=== PATIENT | female | born 1980 | race Caucasian/White ===

== ENCOUNTER 2016-09-03 04:02 | Inpatient (IN) | payer OTHER ==
[2016-09-03] MEDS ORDERED: Sodium Chloride 0.9% 10 ML Syringe FLUSH PRN (06:23)
[2016-09-03] MEDS ORDERED: Butorphanol 1 MG/ML SDV IVPUSH PRN (06:23)
[2016-09-03] MEDS ORDERED: Nalbuphine 10 MG/1 ML Vial IVPUSH PRN (06:23)
[2016-09-03] MEDS ORDERED: Methylergonovine 0.2 MG/1 ML Amp IM PRN (06:23)
[2016-09-03] MEDS ORDERED: Water For Irrigation,Sterile 1,000 ML Container IRR PRN (06:23)
[2016-09-03] MEDS ORDERED: Sodium Chloride 0.9% 2.5 ML Syringe FLUSH PRN (06:23)
[2016-09-03] MEDS ORDERED: Carboprost Tromethamine 250 MCG/1 ML Amp IM PRN (06:23)
[2016-09-03] MEDS ORDERED: Lidocaine 1% 50 ML MDV INJECT PRN (06:23)
[2016-09-03] MEDS ORDERED: Misoprostol 200 MCG Tab PO PRN (06:23)
[2016-09-03] MEDS ORDERED: Oxytocin/Lactated Ringers 30 UNIT/500 ML BAG IV SCH (06:30)
[2016-09-03] MEDS ORDERED: Ampicillin 2 GM in Sodium Chloride 0.9% 100 ML IV ONE ×2 (06:30→07:30)
[2016-09-03] MEDS: Lactated Ringers 1,000 ML IV SCH ×2 (06:55→12:00)
[2016-09-03] MEDS ORDERED: Ampicillin 1 GM in Sodium Chloride 0.9% 50 ML IV SCH (07:30)
--- NOTE | 2016-09-03 11:54 | PCM.LDHP ---
L&D History of Present Illness - General Date of Service: 09/03/16 Admit Problem/Dx: Patient Status Order with Admit Dx/Problem 09/03/16 06:24 Patient Status [ADT] Routine Admission Diagnosis/Problem Admission Diagnosis/Problem Source of Information: Patient History Limitations: Reports: No Limitations - History of Present Illness Improves with: Reports: None Worsens with: Reports: None Associated Symptoms: Reports: N - Related Data Allergies/Adverse Reactions: Allergies Allergy/AdvReac Type Severity Reaction Status Date / Time shellfish derived Allergy Anaphylactic Verified 03/29/16 22:26 Shock Home Medications: Home Meds . [No Known Home Meds] 05/28/14 [History] Past Medical History - Past Health History Medical/Surgical History: Denies Medical/Surgical History HEENT History: Reports: None Cardiovascular History: Reports: None Respiratory History: Reports: Asthma Gastrointestinal History: Reports: None Genitourinary History: Reports: None Other OB/BYN History: Gestational DM. Pre-Eclampsia. bleeding Neurological History: Reports: None Psychiatric History: Reports: None Endocrine/Metabolic History: Reports: Diabetes, Gestational Hematologic History: Reports: None Immunologic History: Reports: None Oncologic (Cancer) History: Reports: None Dermatologic History: Reports: None - Infectious Disease History Infectious Disease History: Reports: None - Past Surgical History GI Surgical History: Reports: Cholecystectomy Other GI Surgeries/Procedures: spleenectomy. cholecystectomy May 2014 Social & Family History - Family History Family Medical History: Noncontributory Cardiac: Reports: Hypertension Endocrine/Metabolic: Reports: Diabetes, type II Oncologic: Reports: Prostate - Tobacco Use Smoking Status *Q: Never Smoker Second Hand Smoke Exposure: No - Caffeine Use Caffeine Use: Reports: None - Alcohol Use Days Per Week of Alcohol Use: 0 - Recreational Drug Use Recreational Drug Use: No H&P Review of Systems - Review of Systems: Review Of Systems: See Below General: Reports: No Symptoms HEENT: Reports: No Symptoms Pulmonary: Reports: No Symptoms Cardiovascular: Reports: No Symptoms Gastrointestinal: Reports: No Symptoms Genitourinary: Reports: No Symptoms Musculoskeletal: Reports: No Symptoms Skin: Reports: No Symptoms Psychiatric: Reports: No Symptoms Neurological: Reports: No Symptoms Hematologic/Lymphatic: Reports: No Symptoms Immunologic: Reports: No Symptoms L&D Exam - Exam Exam: See Below - Vital Signs Weight: 115.6 kg - OB Specific Fundal Height In cm: 39 Contraction Intensity: Mild to Moderate Movement: Active Heart Tones: Present Presentation: Vertex - Stanton Score Stanton Score Consistency: Medium Stanton Score Effacement: 31-50% Stanton Score Dilation: 3-4 cm Stanton Score 's Station: -2 - Exam General: Alert, Oriented HEENT: PERRLA, Conjunctiva Clear, EACs Clear, EOMI, Hearing Intact, Mucosa Moist & Crane, Nares Patent, Normal Nasal Septum, Posterior Pharynx Clear, TMs Clear Neck: Supple, Trachea Midline Lungs: Clear to Auscultation, Normal Respiratory Effort Cardiovascular: Regular Rate, Regular Rhythm GI/Abdominal Exam: Normal Bowel Sounds, Soft, Non-Tender, No Organomegaly, No Distention, No Abnormal Bruit, No Mass, Pelvis Stable Rectal Exam: Normal Exam, Normal Rectal Tone Genitourinary: Normal external exam, Normal bimanual exam, Normal speculum exam Back Exam: Normal Inspection, Full Range of Motion Extremities: Normal Inspection, Normal Range of Motion, Non-Tender, No Pedal Edema, Normal Capillary Refill Skin: Warm, Dry, Intact Neurological: Cranial Nerves Intact, Reflexes Equal Bilateral Psychiatric: Alert, Normal Affect, Normal Mood - Patient Data Lab Results Last 24 hrs: Laboratory Results - last 24 hr 09/03/16 09/03/16 Range/Units 06:43 06:43 WBC 11.83 H (4.0-11.0) K/uL RBC 3.69 L (4.30-5.90) M/uL Hgb 7.2 L (12.0-16.0) g/dL Hct 25.2 L (36.0-46.0) % MCV 68.3 L (80.0-98.0) fL MCH 19.5 L (27.0-32.0) pg MCHC 28.6 L (31.0-37.0) g/dL RDW Std Deviation 45.1 (28.0-62.0) fl RDW Coeff of Damon 18 H (11.0-15.0) % Plt Count 348 (150-400) K/uL MPV 10.20 (7.40-12.00) fL Nucleated RBC % 0.0 /100WBC Nucleated RBCs # 0 K/uL Blood Type O POSITIVE Antibody Screen NEGATIVE Crossmatch See Detail Result Diagrams: 09/03/16 06:43 Problem List Initiated/Reviewed/Updated: Yes Orders Last 24hrs: Active Orders 24 hr Category Date Time Status Patient Status [ADT] Routine ADT 09/03/16 06:24 Active May Shower [RC] ASDIRECTED Care 09/03/16 06:24 Active Notify Provider [RC] PRN Care 09/03/16 06:24 Active Up ad Janette [RC] ASDIRECTED Care 09/03/16 06:24 Active Vital Signs [RC] PER UNIT ROUTINE Care 09/03/16 06:24 Active Clear Liquid Diet [DIET] Diet 09/03/16 Breakfast Active RED BLOOD CELLS LP [BBK] Routine Lab 09/03/16 06:43 Results TYPE AND SCREEN [BBK] Routine Lab 09/03/16 06:43 Results Ampicillin 1 gm Med 09/03/16 11:30 Active Sodium Chloride 0.9% [Normal Saline] 50 ml IV Q4H Butorphanol [Stadol] Med 09/03/16 06:23 Active 1 mg IVPUSH Q1H PRN Carboprost Tromethamine [Hemabate DS] Med 09/03/16 06:23 Active 250 mcg IM ASDIRECTED PRN Lactated Ringers [Ringers, Lactated] 1,000 ml Med 09/03/16 06:30 Active IV ASDIRECTED Lidocaine 1% [Xylocaine 1%] Med 09/03/16 06:23 Active 50 ml INJECT .ONCE PRN Methylergonovine [Methergine] Med 09/03/16 06:23 Active 0.2 mg IM ASDIRECTED PRN Misoprostol [Cytotec] Med 09/03/16 06:23 Active 200 mcg PO .ONCE PRN Sodium Chloride 0.9% [Saline Flush] Med 09/03/16 06:23 Active 10 ml FLUSH ASDIRECTED PRN Sodium Chloride 0.9% [Saline Flush] Med 09/03/16 06:23 Active 2.5 ml FLUSH ASDIRECTED PRN Water For Irrigation,Sterile [Sterile Water for Med 09/03/16 06:23 Active Irrigation] 1,000 ml IRR ASDIRECTED PRN Scalp Electrode [WOMSER] Per Unit Routine Oth 09/03/16 06:24 Ordered Peripheral IV Insertion Adult [OM.PC] Routine Oth 09/03/16 06:24 Ordered Transfuse Red Blood Cells [COMM] Routine Oth 09/03/16 07:52 Ordered Resuscitation Status Routine Resus Stat 09/03/16 06:23 Ordered Medication Orders Butorphanol Tartrate (Stadol) 1 mg IVPUSH Q1H PRN PRN Reason: Pain Stop: 09/04/16 06:24 Carboprost Tromethamine (Hemabate Ds) 250 mcg IM ASDIRECTED PRN PRN Reason: Post Hemorrhage Lactated Ringer's (Ringers, Lactated) 1,000 mls @ 150 mls/hr IV ASDIRECTED EVELIN Last Admin: 09/03/16 06:55 Dose: 150 mls/hr Ampicillin Sodium 1 gm/ Sodium (Chloride) 50 mls @ 100 mls/hr IV Q4H EVELIN Lidocaine HCl (Xylocaine 1%) 50 ml INJECT .ONCE PRN PRN Reason: Laceration repair Methylergonovine Maleate (Methergine) 0.2 mg IM ASDIRECTED PRN PRN Reason: Post Hemorrhage Misoprostol (Cytotec) 200 mcg PO .ONCE PRN PRN Reason: Post Hemorrhage Sodium Chloride (Saline Flush) 10 ml FLUSH ASDIRECTED PRN PRN Reason: Keep Vein Open Sodium Chloride (Saline Flush) 2.5 ml FLUSH ASDIRECTED PRN PRN Reason: Keep Vein Open Sterile Water (Sterile Water For Irrigation) 1,000 ml IRR ASDIRECTED PRN PRN Reason: delivery Assessment/Plan Comment:: IUP 38 + wks have no care shwe seen in our clinic in once. EDC 09/13/16. GBS status is unknown. she is in early labor. Plan to admit start on antibiotic she may need pitocin argumentation
[2016-09-03] MEDS: Ampicillin 1 GM in Sodium Chloride 0.9% 50 ML IV SCH ×4 (11:55→23:37)
[2016-09-03] MEDS ORDERED: Misoprostol 25 MCG (1/4 of 100 MCG) Tab VAG PRN (12:01)
[2016-09-03] MEDS ORDERED: Terbutaline 1 MG/ML SDV SUBCUT PRN (12:01)
[2016-09-03] MEDS ORDERED: Misoprostol 25 MCG (1/4 of 100 MCG) Tab VAG SCH (12:15)
[2016-09-03] MEDS: Oxytocin/Lactated Ringers 30 UNIT/500 ML BAG IV SCH (13:20)
[2016-09-03] MEDS ORDERED: Ropivacaine 0.2% 2 MG/ML 20 ML SDV ONE (22:28)
--- NOTE | 2016-09-03 22:58 | PCM.PREANE ---
Preanesthetic Assessment - Anesthesia/Transfusion/Family Hx Anesthesia History: Prior Anesthesia Without Reaction Family History of Anesthesia Reaction: No - Review of Systems Other: Reports: None - Physical Assessment Height: 5 ft 4 in Weight: 115.6 kg ASA Class: 2 Mental Status: Alert & Oriented x3 Airway Class: Mallampati = 2 Thyro-Mental Finger Breadths: 3 Mouth Opening Finger Breadths: 3 ROM/Head Extension: Full - Lab Values: Laboratory Last Values WBC 11.83 K/uL (4.0-11.0) H 09/03/16 06:43 RBC 3.69 M/uL (4.30-5.90) L 09/03/16 06:43 Hgb 7.2 g/dL (12.0-16.0) L 09/03/16 06:43 Hct 25.2 % (36.0-46.0) L 09/03/16 06:43 MCV 68.3 fL (80.0-98.0) L 09/03/16 06:43 MCH 19.5 pg (27.0-32.0) L 09/03/16 06:43 MCHC 28.6 g/dL (31.0-37.0) L 09/03/16 06:43 RDW Std Deviation 45.1 fl (28.0-62.0) 09/03/16 06:43 RDW Coeff of Damon 18 % (11.0-15.0) H 09/03/16 06:43 Plt Count 348 K/uL (150-400) 09/03/16 06:43 MPV 10.20 fL (7.40-12.00) 09/03/16 06:43 Nucleated RBC % 0.0 /100WBC 09/03/16 06:43 Nucleated RBCs # 0 K/uL 09/03/16 06:43 Blood Type O POSITIVE 09/03/16 06:43 Antibody Screen NEGATIVE 09/03/16 06:43 Crossmatch See Detail 09/03/16 06:43 - Allergies Allergies/Adverse Reactions: Allergies Allergy/AdvReac Type Severity Reaction Status Date / Time shellfish derived Allergy Anaphylactic Verified 03/29/16 22:26 Shock - Blood Blood Available: Yes Product(s) Available: PRBC - Acknowledgements Anesthesia Type Planned: Epidural Pt an Appropriate Candidate for the Planned Anesthesia: Yes Alternatives and Risks of Anesthesia Discussed w Pt/Guardian: Yes Pt/Guardian Understands and Agrees with Anesthesia Plan: Yes PreAnesthesia Questionnaire - Past Health History Medical/Surgical History: Denies Medical/Surgical History HEENT History: Reports: None Cardiovascular History: Reports: None Respiratory History: Reports: Asthma Gastrointestinal History: Reports: None Genitourinary History: Reports: None Other OB/BYN History: Gestational DM. Pre-Eclampsia. bleeding Neurological History: Reports: None Psychiatric History: Reports: None Endocrine/Metabolic History: Reports: Diabetes, Gestational Hematologic History: Reports: None Immunologic History: Reports: None Oncologic (Cancer) History: Reports: None Dermatologic History: Reports: None - Infectious Disease History Infectious Disease History: Reports: None - Past Surgical History GI Surgical History: Reports: Cholecystectomy Other GI Surgeries/Procedures: spleenectomy. cholecystectomy May 2014 - SUBSTANCE USE Smoking Status *Q: Never Smoker Tobacco Use Within Last Twelve Months: No Second Hand Smoke Exposure: No Days Per Week of Alcohol Use: 0 Recreational Drug Use History: No - HOME MEDS Home Medications: Home Meds . [No Known Home Meds] 05/28/14 [History] - CURRENT (IN HOUSE) MEDS Current Meds: Current Medications Butorphanol Tartrate (Stadol) 1 mg IVPUSH Q1H PRN PRN Reason: Pain Stop: 09/04/16 06:24 Carboprost Tromethamine (Hemabate Ds) 250 mcg IM ASDIRECTED PRN PRN Reason: Post Hemorrhage Lactated Ringer's (Ringers, Lactated) 1,000 mls @ 150 mls/hr IV ASDIRECTED EVELIN Last Admin: 09/03/16 12:00 Dose: 150 mls/hr Ampicillin Sodium 1 gm/ Sodium (Chloride) 50 mls @ 100 mls/hr IV Q4H EVELIN Last Admin: 09/03/16 19:43 Dose: 100 mls/hr Oxytocin/Lactated Ringer's (Pitocin In Lr 30 Units/500 Ml) 30 unit in 500 mls @ 2 mls/hr IV TITRATE EVELIN; 2 MUNITS/MIN PRN Reason: Protocol Last Titration: 09/03/16 17:32 Dose: 20 munits/min, 20 mls/hr Lidocaine HCl (Xylocaine 1%) 50 ml INJECT .ONCE PRN PRN Reason: Laceration repair Methylergonovine Maleate (Methergine) 0.2 mg IM ASDIRECTED PRN PRN Reason: Post Hemorrhage Misoprostol (Cytotec) 200 mcg PO .ONCE PRN PRN Reason: Post Hemorrhage Sodium Chloride (Saline Flush) 10 ml FLUSH ASDIRECTED PRN PRN Reason: Keep Vein Open Sodium Chloride (Saline Flush) 2.5 ml FLUSH ASDIRECTED PRN PRN Reason: Keep Vein Open Sterile Water (Sterile Water For Irrigation) 1,000 ml IRR ASDIRECTED PRN PRN Reason: delivery Terbutaline Sulfate (Brethine) 0.25 mg SUBCUT ASDIRECTED PRN PRN Reason: Tacysystole Discontinued Medications Ampicillin Sodium 2 gm/ Sodium (Chloride) 100 mls @ 200 mls/hr IV ONETIME ONE Stop: 09/03/16 06:59 Last Admin: 09/03/16 07:42 Dose: 200 mls/hr Oxytocin/Lactated Ringer's (Pitocin In Lr 30 Units/500 Ml) 30 unit in 500 mls @ 999 mls/hr IV TITRATE EVELIN; 999 MUNITS/MIN PRN Reason: Protocol Stop: 09/03/16 07:01 Ampicillin Sodium 2 gm/ Sodium (Chloride) 100 mls @ 200 mls/hr IV ONETIME ONE Stop: 09/03/16 07:59 Ampicillin Sodium 1 gm/ Sodium (Chloride) 50 mls @ 100 mls/hr IV Q4H EVELIN Ropivacaine/Fentanyl/NS (Fentanyl 2 Mcg-Ropiv 0.2%-Ns) Confirm Administered Dose 100 mls @ as directed .ROUTE .STK-MED ONE Stop: 09/03/16 22:28 Nalbuphine HCl (Nubain) 10 mg IVPUSH Q1H PRN PRN Reason: Pain (severe 7-10) Stop: 09/03/16 08:24 Ropivacaine (Naropin 0.2%) Confirm Administered Dose 20 ml .ROUTE .STK-MED ONE Stop: 09/03/16 22:29
[2016-09-04] MEDS ORDERED: Ibuprofen 800 MG Tab PO PRN (01:16)
[2016-09-04] MEDS ORDERED: Ibuprofen 400 MG Tab PO PRN (01:16)
[2016-09-04] MEDS ORDERED: Acetaminophen 500 MG Tab PO PRN ×2 (01:16)
[2016-09-04] MEDS ORDERED: Benzocaine/Menthol 20%-0.5% Spray 78 GM Cannister TOP PRN (01:16)
[2016-09-04] MEDS ORDERED: Docusate Sodium 100 MG Cap PO PRN (01:16)
[2016-09-04] MEDS ORDERED: oxyCODONE 5 MG Tab PO PRN (01:16)
[2016-09-04] MEDS ORDERED: Bisacodyl 10 MG Supp RECTAL PRN (01:16)
[2016-09-04] MEDS ORDERED: Lanolin 100% Cream 7 GM Tube TOP PRN (01:16)
[2016-09-04] MEDS ORDERED: Witch Hazel Medicated Pads 40/Jar TOP PRN (01:16)
[2016-09-04] MEDS: Oxytocin/Lactated Ringers 30 UNIT/500 ML BAG IV SCH (01:31)
[2016-09-04] MEDS ORDERED: Oxytocin/Lactated Ringers 30 UNIT/500 ML BAG IV SCH (01:45)
--- NOTE | 2016-09-04 01:47 | OR ---
SURGEON: Luigi Garcia MD DATE OF PROCEDURE: Ms. Dillard is 35 years old. She is para 12-0-1-12. She has very limited care in this delivery. In this , she was seen in the clinic once by our harness repairer and she was told at that time her EDC is on September 15, 2016. The patient presented to Labor and Delivery in early labor. At the time of admission, she was 5 cm dilated, 60% vertex, minus 3. The patient progressed to 6 cm and then artificial rupture of the membrane is done by me. She required Pitocin augmentation for labor. She had epidural anesthesia for labor analgesia. The patient progressed rather slowly. Her amniotic fluid was clear and eventually the patient became complete-complete and I was able to accomplish normal spontaneous vaginal delivery of a male fetus, cried immediately. score is reported as 8 and 9 at 1 and 5. Two nuchal cords were noted, reduced easily without any problem. There was no need for episiotomy. There is no laceration, the perineal or labial laceration. The placenta delivered spontaneous, complete, and intact without any problem. ESTIMATED BLOOD LOSS: 250 to 300 mL. Through the entire process of labor, the heart rate was category 1. There was no complication in the labor and in the . RAMIREZ / DANIA /[id number]
--- NOTE | 2016-09-04 09:19 | PCM48HPAN ---
Post Anesthesia Note - EVALUATION WITHIN 48HRS OF ANESTHETIC Vital Signs in Normal Range: Yes Patient Participated in Evaluation: Yes Respiratory Function Stable: Yes Airway Patent: Yes Cardiovascular Function Stable: Yes Hydration Status Stable: Yes Pain Control Satisfactory: Yes Nausea and Vomiting Control Satisfactory: Yes Mental Status Recovered: Yes
--- NOTE | 2016-09-05 08:30 | PCM.DCSUM1 ---
Discharge Summary - Hospital Course Free Text/Narrative:: Discharge home with infant. Follow up 6 weeks or sooner if needed. - Discharge Data Discharge Date: 09/05/16 Discharge Disposition: Home, Self-Care 01 Condition: Good - Discharge Diagnosis/Problem(s) (1) Grand multipara SNOMED Code(s): 26240251 ICD Code: Z64.1 - PROBLEMS RELATED TO MULTIPARITY Status: Acute Priority : High Current Visit: Yes (2) (normal spontaneous vaginal delivery) SNOMED Code(s): 10545851 ICD Code: O80 - ENCOUNTER FOR FULL-TERM UNCOMPLICATED DELIVERY Status: Acute Priority: Medium Current Visit: Yes - Patient Instructions Diet: Usual Diet as Tolerated Activity: As Tolerated, Rest and Relax Today Driving: May Drive Today Showering/Bathing: May Shower Notify Provider of: Fever, Increased Pain, Swelling and Redness, Nausea and/or Vomiting Other/Special Instructions: Discharge home with . Follow up 6 weeks or sooner if needed. - Discharge Plan Home Medications: Home Meds . [No Known Home Meds] 05/28/14 [History] Referrals: [facility] [Outside] Luigi Garcia MD [Physician] - 10/17/16 10:45 am - General Info Date of Service: 09/05/16 Admission Dx/Problem (Free Text: Patient Status Order with Admit Dx/Problem 09/03/16 06:24 Patient Status [ADT] Routine Admission Diagnosis/Problem Admission Diagnosis/Problem Functional Status: Reports: Pain Controlled, Tolerating Diet, Ambulating, Urinating - Review of Systems General: Reports: No Symptoms HEENT: Reports: No Symptoms Pulmonary: Reports: No Symptoms Cardiovascular: Reports: No Symptoms Gastrointestinal: Reports: No Symptoms Genitourinary: Reports: No Symptoms Musculoskeletal: Reports: No Symptoms Skin: Reports: No Symptoms Neurological: Reports: No Symptoms Psychiatric: Reports: No Symptoms - Patient Data Vitals - Most Recent: Last Vital Signs Temp 36.8 C 09/05/16 04:41 Pulse 94 09/05/16 04:41 Resp 18 09/05/16 04:41 BP 134/75 09/05/16 04:41 Pulse Ox 95 09/05/16 04:41 Weight - Most Recent: 115.6 kg Lab Results - Last 24 hrs: Laboratory Results - last 24 hr 09/04/16 09/05/16 Range/Units 12:04 05:34 Hgb 7.1 L 6.6 L (12.0-16.0) g/dL Hct 25.2 L 23.8 L (36.0-46.0) % Med Orders - Current: Current Medications Acetaminophen (Tylenol Extra Strength) 500 mg PO Q4H PRN PRN Reason: Pain Acetaminophen (Tylenol Extra Strength) 1,000 mg PO Q4H PRN PRN Reason: Pain Benzocaine/Menthol (Dermoplast Pain Relief 20%-0.5% [place]) 78 gm TOP ASDIRECTED PRN PRN Reason: Perineal Comfort Measure Bisacodyl (Dulcolax) 10 mg RECTAL .ONCE PRN PRN Reason: Constipation Carboprost Tromethamine (Hemabate Ds) 250 mcg IM ASDIRECTED PRN PRN Reason: Post Hemorrhage Docusate Sodium (Colace) 100 mg PO BID PRN PRN Reason: Constipation Emollient Ointment (Lansinoh Hpa) 0 gm TOP ASDIRECTED PRN PRN Reason: Sore Nipples Lactated Ringer's (Ringers, Lactated) 1,000 mls @ 150 mls/hr IV ASDIRECTED EVELIN Last Admin: 09/03/16 12:00 Dose: 150 mls/hr Ampicillin Sodium 1 gm/ Sodium (Chloride) 50 mls @ 100 mls/hr IV Q4H EVELIN Last Admin: 09/03/16 23:37 Dose: 100 mls/hr Oxytocin/Lactated Ringer's (Pitocin In Lr 30 Units/500 Ml) 30 unit in 500 mls @ 2 mls/hr IV TITRATE EVELIN; 2 MUNITS/MIN PRN Reason: Protocol Last Admin: 09/04/16 01:31 Dose: 125 munits/min, 125 mls/hr Oxytocin/Lactated Ringer's (Pitocin In Lr 30 Units/500 Ml) 30 unit in 500 mls @ 125 mls/hr IV TITRATE EVELIN; 125 MUNITS/MIN PRN Reason: Protocol Ibuprofen (Motrin) 400 mg PO Q4H PRN PRN Reason: Pain Ibuprofen (Motrin) 800 mg PO Q6H PRN PRN Reason: Pain Last Admin: 09/04/16 14:04 Dose: 800 mg Lidocaine HCl (Xylocaine 1%) 50 ml INJECT .ONCE PRN PRN Reason: Laceration repair Methylergonovine Maleate (Methergine) 0.2 mg IM ASDIRECTED PRN PRN Reason: Post Hemorrhage Misoprostol (Cytotec) 200 mcg PO .ONCE PRN PRN Reason: Post Hemorrhage Oxycodone HCl (Oxycodone) 5 mg PO Q2H PRN PRN Reason: Pain Sodium Chloride (Saline Flush) 10 ml FLUSH ASDIRECTED PRN PRN Reason: Keep Vein Open Sodium Chloride (Saline Flush) 2.5 ml FLUSH ASDIRECTED PRN PRN Reason: Keep Vein Open Sterile Water (Sterile Water For Irrigation) 1,000 ml IRR ASDIRECTED PRN PRN Reason: delivery Terbutaline Sulfate (Brethine) 0.25 mg SUBCUT ASDIRECTED PRN PRN Reason: Tacysystole Witch Liana (Tucks) 1 pad TOP ASDIRECTED PRN PRN Reason: comfort care Discontinued Medications Butorphanol Tartrate (Stadol) 1 mg IVPUSH Q1H PRN PRN Reason: Pain Stop: 09/04/16 06:24 Ampicillin Sodium 2 gm/ Sodium (Chloride) 100 mls @ 200 mls/hr IV ONETIME ONE Stop: 09/03/16 06:59 Last Admin: 09/03/16 07:42 Dose: 200 mls/hr Oxytocin/Lactated Ringer's (Pitocin In Lr 30 Units/500 Ml) 30 unit in 500 mls @ 999 mls/hr IV TITRATE EVELIN; 999 MUNITS/MIN PRN Reason: Protocol Stop: 09/03/16 07:01 Ampicillin Sodium 2 gm/ Sodium (Chloride) 100 mls @ 200 mls/hr IV ONETIME ONE Stop: 09/03/16 07:59 Ampicillin Sodium 1 gm/ Sodium (Chloride) 50 mls @ 100 mls/hr IV Q4H EVELIN Ropivacaine/Fentanyl/NS (Fentanyl 2 Mcg-Ropiv 0.2%-Ns) Confirm Administered Dose 100 mls @ as directed .ROUTE .STK-MED ONE Stop: 09/03/16 22:28 Nalbuphine HCl (Nubain) 10 mg IVPUSH Q1H PRN PRN Reason: Pain (severe 7-10) Stop: 09/03/16 08:24 Ropivacaine (Naropin 0.2%) Confirm Administered Dose 20 ml .ROUTE .BBOXXK-MED ONE Stop: 09/03/16 22:29 - Exam General: Reports: Alert, Oriented, Cooperative, No Acute Distress Lungs: Reports: Normal Respiratory Effort GI/Abdominal Exam: Soft, Non-Tender, No Organomegaly (Female) Exam: Vaginal Bleeding Rectal (Female) Exam: Deferred Back Exam: Reports: Full Range of Motion Extremities: Normal Range of Motion, No Pedal Edema Skin: Reports: Warm, Dry, Intact Wound/Incisions: Reports: Healing Well Neurological: Reports: No New Focal Deficit, Normal Speech, Normal Tone Psy/Mental Status: Reports: Alert, Normal Affect, Normal Mood *Q Meaningful Use (DIS) - VTE *Q VTE Criteria *Q: - Stroke *Q Stroke Criteria *Q: - AMI *Q AMI Criteria *Q:
[2016-09-05 09:40] VITALS: BP 125/65
[2016-09-05] MEDS ORDERED: MEDROXYPROGESTERONE IM ONE (10:15)
== END 2016-09-05 13:05 | disposition home or self-care (01) | DRG 775 ==
LOC: MW.OB 04:02 → MW.OBCHECK 04:02 → MW.OB 06:24 → MW.OBCHECK 06:24 → OBSVTOIN 09-04 01:09
PROVIDERS: ADMIT Obstetrics & Gynecology; ATTEND Obstetrics & Gynecology
PROC: 10E0XZZ Delivery of Products of Conception, External Approach (ICD-10-PCS; principal; 2016-09-04)
PROC: 10907ZC Drainage of Amniotic Fluid, Therapeutic from Products of Conception, Via Natural or Artificial Opening (ICD-10-PCS; 2016-09-04)
DX: O75.89 Other specified complications of labor and delivery (principal); O09.33 Supervision of pregnancy with insufficient antenatal care, third trimester; O09.523 Supervision of elderly multigravida, third trimester; O09.43 Supervision of pregnancy with grand multiparity, third trimester; Z3A.38 38 weeks gestation of pregnancy; Z37.0 Single live birth
CPT/HCPCS: 36415; 59025; 85014; 85018; 85027; 86850; 86900; 86901; 86920; 86921; 86922; A9270-GY; J0290; J1050; J7030; J7050; J7120